=== PATIENT | female | born 1985 | race Caucasian/White ===

== ENCOUNTER 2020-01-01 15:16 | Emergency (ER) | payer OTHER, SELFPAY ==
--- NOTE | 2020-01-01 16:08 | EDPHYS ---
Physician Documentation [facility] Name: Yolanda Bernard Age: 34 yrs Sex: Female : 1985 Arrival Date: 01/01/2020 Time: 15:20 Bed 5 Private MD: IMNA Physician Obi Burnette HPI: 12/31 16:06 This 34 yrs old Female presents to ER via Ambulatory with complaints of Ear jr8 Pain. 16:06 The pt presents for ear pain and drainage since . The pt stated that she was jr8 walking and cleaning her L ear with a Q-tip, when her arm suddenly hit the wall. This forced the Q-tip deep in her ear, and she suddenly felt dizzy. She reports some loss of hearing with "pink drainage and pus" leaking out of her ear. States that the pain is currently a 5/10.. 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 - Social history:: Smoking status: Patient denies any tobacco usage or history of. ROS: 16:09 Eyes: Negative for injury, pain, redness, and discharge, Neck: Negative for injury, jr8 pain, and swelling, Cardiovascular: Negative for chest pain, palpitations, and edema, Respiratory: Negative for shortness of breath, cough, wheezing, and pleuritic chest pain, Abdomen/GI: Negative for abdominal pain, nausea, vomiting, diarrhea, and constipation, Back: Negative for injury and pain, MS/Extremity: Negative for injury and deformity, Skin: Negative for injury, rash, and discoloration, Neuro: Negative for headache, weakness, numbness, tingling, and seizure. 16:09 ENT: Positive for drainage from ear(s), ear pain. Exam: 16:09 Constitutional: This is a well developed, well nourished patient who is awake, alert, jr8 and in no acute distress. Eyes: Pupils equal round and reactive to light, extra-ocular motions intact. Lids and lashes normal. Conjunctiva and sclera are non-icteric and not injected. Cornea within normal limits. Periorbital areas with no swelling, redness, or edema. Neck: Trachea midline, no thyromegaly or masses palpated, and no cervical lymphadenopathy. Supple, full range of motion without nuchal rigidity, or vertebral point tenderness. No Meningismus. Cardiovascular: Regular rate and rhythm with a normal S1 and S2. No gallops, murmurs, or rubs. Normal PMI, no JVD. No pulse deficits. Respiratory: Lungs have equal breath sounds bilaterally, clear to auscultation and percussion. No rales, rhonchi or wheezes noted. No increased work of breathing, no retractions or nasal flaring. Skin: Warm, dry with normal turgor. Normal color with no rashes, no lesions, and no evidence of cellulitis. MS/ Extremity: Pulses equal, no cyanosis. Neurovascular intact. Full, normal range of motion. Neuro: Awake and alert, GCS 15, oriented to person, place, time, and situation. Cranial nerves II-XII grossly intact. Motor strength 5/5 in all extremities. Sensory grossly intact. Cerebellar exam normal. Normal gait. 16:09 ENT: External ear(s): are unremarkable, Ear canal(s): bloody discharge, that is minimal, in the left canal, TM's: erythema, that is mild, on the left, rupture, on the left, with bloody discharge, Nose: is normal, Mouth: is normal, Posterior pharynx: is normal, Dental exam: normal. Vital Signs: 15:26 BP 136 / 87; Pulse 73; Resp 17; Temp 97.8; Pulse Ox 100% ; Pain 5/10; jl7 MDM: 15:52 Patient medically screened. jr8 16:09 Data reviewed: vital signs, nurses notes, and as a result, I will discharge patient. jr8 Data interpreted: Pulse oximetry: on room air is 100 %. Interpretation: normal. Counseling: I had a detailed discussion with the patient and/or guardian regarding: the historical points, exam findings, and any diagnostic results supporting the discharge/admit diagnosis, the need for outpatient follow up, an ENT specialist, to return to the emergency department if symptoms worsen or persist or if there are any questions or concerns that arise at home. Administered Medications: No medications were administered Disposition: 01/01 13:52 Co-signature as Attending Physician, Obi Burnette MD I agree with the assessment and saundra plan of care. Disposition: 01/01/20 16:08 Discharged to Home. Impression: Other marginal perforations of tympanic membrane, left ear. - Condition is Stable. - Discharge Instructions: Eardrum Rupture, Adult. - Prescriptions for Amoxicillin 875 mg Oral Tablet - take 1 tablet by ORAL route every 12 hours for 10 days; 20 tablet. Ibuprofen 800 mg Oral Tablet - take 1 tablet by ORAL route every 12 hours As needed take with food; 20 tablet. - Medication Reconciliation Form, Thank You Letter, Antibiotic Education, Prescription Opioid Use form. - Follow up: Chloe Huston MD; When: 2 - 3 days; Reason: Recheck today's complaints, Continuance of care, Re-evaluation by your physician. - Problem is new. - Symptoms have improved. Signatures: Obi Burnette MD MD cha Williams, Irene, RN RN Delvin Cobb PA PA jr8 Olga Santos RN RN jl7 Corrections: (The following items were deleted from the chart) 12/31 16:19 16:08 01/01/2020 16:08 Discharged to Home. Impression: Other marginal perforations of iw tympanic membrane, left ear. Condition is Stable. Forms are Medication Reconciliation Form, Thank You Letter, Antibiotic Education, Prescription Opioid Use. Follow up: Chloe Huston; When: 2 - 3 days; Reason: Recheck today's complaints, Continuance of care, Re-evaluation by your physician. Problem is new. Symptoms have improved. jr8
--- NOTE | 2020-01-01 16:08 | ER ---
Nurse's Notes [facility] Name: Yolanda Bernard Age: 34 yrs Sex: Female : 1985 Arrival Date: 01/01/2020 Time: 15:20 Bed 5 Private MD: Diagnosis: Other marginal perforations of tympanic membrane, left ear Presentation: 12/31 15:26 Chief complaint: Patient states: Busted my eardrum on Wednesday from walking while jl7 cleaning my ear and tripped and shoved the q-tip in there. Reports left ear pain. Coronavirus screen: Client denies travel out of the [place] in the last 14 days. At this time, the client does not indicate any symptoms associated with coronavirus-19. Ebola Screen: No symptoms or risks identified at this time. Initial Sepsis Screen: Does the patient meet any 2 criteria? No. Patient's initial sepsis screen is negative. Does the patient have a suspected source of infection? No. Patient's initial sepsis screen is negative. Risk Assessment: Do you want to hurt yourself or someone else? Patient reports no desire to harm self or others. Onset of symptoms was December 30, 2019. Care prior to arrival: None. 15:26 Method Of Arrival: Ambulatory [facility] 15:26 Acuity: SELINA 4 jl7 Triage Assessment: 15:29 General: Appears in no apparent distress. uncomfortable, Behavior is calm, cooperative, jl7 appropriate for age. Pain: Complains of pain in left ear Pain currently is 5 out of 10 on a pain scale. EENT: Reports pain in left ear. 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 - Social history:: Smoking status: Patient denies any tobacco usage or history of. Screenin:18 Abuse screen: Denies threats or abuse. Denies injuries from another. Nutritional iw screening: No deficits noted. Tuberculosis screening: No symptoms or risk factors identified. Fall Risk None identified. Assessment: 15:50 General: Appears in no apparent distress. comfortable, Behavior is calm, cooperative. iw Pain: Complains of pain in left ear. Neuro: Level of Consciousness is awake, alert, obeys commands, Oriented to person, place, time, situation, Moves all extremities. Full function. Cardiovascular: Patient's skin is warm and dry. Respiratory: Respiratory effort is even, unlabored, Respiratory pattern is regular, symmetrical. EENT: Reports pain in left ear. Derm: Skin is intact, is healthy with good turgor. Musculoskeletal: Range of motion: intact in all extremities. Vital Signs: 15:26 BP 136 / 87; Pulse 73; Resp 17; Temp 97.8; Pulse Ox 100% ; Pain 5/10; jl7 ED Course: 15:20 Patient arrived in ED. ag5 15:28 Triage completed. jl7 15:29 Arm band placed on right wrist. jl7 15:50 Patient has correct armband on for positive identification. iw 15:52 Dlevin Barney PA is PHCP. jr8 15:52 Obi Burnette MD is Attending Physician. jr8 16:07 Latasha Zelaya, RN is Primary Nurse. iw 16:07 Chloe Huston MD is Referral Physician. jr8 16:18 No provider procedures requiring assistance completed. Patient did not have IV access iw during this emergency room visit. Administered Medications: No medications were administered Outcome: 16:08 Discharge ordered by . jr8 16:18 Discharged to home ambulatory. iw 16:18 Condition: good 16:18 Discharge instructions given to patient, Instructed on discharge instructions, follow up and referral plans. Demonstrated understanding of instructions, follow-up care, medications, Prescriptions given X 2. 16:19 Patient left the ED. iw Signatures: Latasha Zelaya, RN RN iw Delvin Barney PA PA jr8 Olga Santos RN RN jl7 Susan Hanks ag5
[2020-01-01 16:56] VITALS: BP 136/87; TEMP 97.8; O2SAT 100
== END 2020-01-01 16:19 | disposition home or self-care (01) ==
LOC: ER 15:16
DX: H72.2X2 Other marginal perforations of tympanic membrane, left ear (principal)
CPT/HCPCS: 99282

== ENCOUNTER 2021-11-15 17:47 | Emergency (ER) | payer SELFPAY ==
[2021-11-15] MEDS ORDERED: KETOROLAC 30 MG/ML INJ ONE (18:34)
--- NOTE | 2021-11-15 19:42 | ER ---
Nurse's Notes [facility] Name: Yolanda Steen Age: 36 yrs Sex: Female : 1985 Arrival Date: 11/15/2021 Time: 17:50 Bed 5 Private MD: Diagnosis: Orthopedic appliance disruption - screw;Other skin changes Presentation: 11/15 18:06 Chief complaint: Patient states: "I had surgery on my ankle when I was 18, this week hb one of the screws started poking out and it hurts." Denies recent injury. Reports left ankle pain 11/12. Coronavirus screen: At this time, the client does not indicate any symptoms associated with coronavirus-19. Ebola Screen: No symptoms or risks identified at this time. Initial Sepsis Screen: Does the patient meet any 2 criteria? No. Patient's initial sepsis screen is negative. Does the patient have a suspected source of infection? No. Patient's initial sepsis screen is negative. Risk Assessment: Do you want to hurt yourself or someone else? Patient reports no desire to harm self or others. Onset of symptoms was November 15, 2021. 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 - Social history:: Smoking status: Patient denies any tobacco usage or history of. Screenin:30 Abuse screen: Denies threats or abuse. Denies injuries from another. Nutritional jh6 screening: No deficits noted. Tuberculosis screening: No symptoms or risk factors identified. Fall Risk Gait- Impaired (20 pts.). Assessment: 18:29 General: Appears in no apparent distress. comfortable, Behavior is calm, cooperative. jh6 Pain: Complains of pain in left lateral ankle, left Achilles, left medial ankle and anterior aspect of left ankle Pain currently is 8 out of 10 on a pain scale. Quality of pain is described as aching, throbbing, Pain began 2-3 days ago. Is continuous, Aggravated by exercise, increased activity, weight bearing, Noted to be resistant to movement. Musculoskeletal: Range of motion: limited in left ankle Swelling present in left lateral ankle, left Achilles, left medial ankle and anterior aspect of left ankle Reports pain in left lateral ankle, left Achilles, left medial ankle and anterior aspect of left ankle. 19:13 Reassessment: Patient ambulating to the bathroom. vc1 Vital Signs: 18:06 BP 154 / 98; Pulse 83; Resp 16; Temp 98.1; Pulse Ox 100% on R/A; Weight 131.54 kg; hb Height 5 ft. 5 in. (165.10 cm); Pain 8/10; 19:25 BP 120 / 87; Pulse 86; Resp 16; Pulse Ox 98% on R/A; vc1 18:06 Body Mass Index 48.26 (131.54 kg, 165.10 cm) hb ED Course: 17:50 Patient arrived in ED. mr 17:52 De[facility] Can[facility]C [facility] snw 17:52 Obi Bunrette MD is Attending Physician. snw 18:08 Triage completed. hb 18:08 Arm band placed on. hb 18:24 Concha Humphrey, RN is Primary Nurse. 6 18:30 Bed in low position. Call light in reach. Side rails up X 1. Adult w/ patient. jh6 18:31 No provider procedures requiring assistance completed. 6 19:16 Primary Nurse role handed off by Concha Humphrey, LOYD vc1 19:16 Sabrina Frias, LOYD is Primary Nurse. vc1 19:38 Ankle Left 3 View XRAY In Process Unspecified. EDMS 19:40 Maurice Duncan MD is Referral Physician. snw 19:57 Patient did not have IV access during this emergency room visit. kd3 Administered Medications: 18:28 Drug: Ketorolac 30 mg Route: IM; Site: right deltoid; 6 18:54 Follow up: Response: No adverse reaction 6 Medication: 18:31 VIS not applicable for this client. 6 Outcome: 19:41 Discharge ordered by . snw 19:57 Discharged to home ambulatory, with family. kd3 19:57 Condition: stable 19:57 Discharge instructions given to patient, family, Instructed on discharge instructions, follow up and referral plans. Demonstrated understanding of instructions, follow-up care, medications, Prescriptions given X 3. 19:57 Patient left the ED. kd3 Signatures: Dispatcher [employer] EDHI Debbie Cano FNP-C HARNESS P[employer]ER-Csnw Sanjuana GordilloLeonie, RN RN hb Janet Silverman, RN RN kd3 Concha Humphrey, RN RN jh6 Sabrina Frias, RN RN vc1
--- NOTE | 2021-11-15 19:42 | EDPHYS ---
Physician Documentation [facility] Name: Yolanda Steen Age: 36 yrs Sex: Female : 1985 Arrival Date: 11/15/2021 Time: 17:50 Bed 5 Private MD: ED Physician Obi Burnette HPI: 11/15 19:16 This 36 yrs old Female presents to ER via Ambulatory with complaints of Ankle pain. snw 19:16 Onset: The symptoms/episode began/occurred acutely. Associated signs and symptoms: snw Pertinent positives: tenderness. The patient has not experienced similar symptoms in the past. The patient has not recently seen a physician. 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 - Social history:: Smoking status: Patient denies any tobacco usage or history of. ROS: 19:16 Constitutional: Negative for fever, chills, and weight loss, Eyes: Negative for injury, snw pain, redness, and discharge, ENT: Negative for injury, pain, and discharge, Neck: Negative for injury, pain, and swelling, Cardiovascular: Negative for chest pain, palpitations, and edema, Respiratory: Negative for shortness of breath, cough, wheezing, and pleuritic chest pain, Abdomen/GI: Negative for abdominal pain, nausea, vomiting, diarrhea, and constipation, Back: Negative for injury and pain, : Negative for injury, bleeding, discharge, and swelling, Skin: Negative for injury, rash, and discoloration, Neuro: Negative for headache, weakness, numbness, tingling, and seizure, Psych: Negative for depression, anxiety, suicide ideation, homicidal ideation, and hallucinations. 19:16 MS/extremity: Positive for decreased range of motion, tenderness, of the left medial ankle. Exam: 19:13 Constitutional: This is a well developed, well nourished patient who is awake, alert, snw and in no acute distress. Head/Face: Normocephalic, atraumatic. Eyes: Pupils equal round and reactive to light, extra-ocular motions intact. Lids and lashes normal. Conjunctiva and sclera are non-icteric and not injected. Cornea within normal limits. Periorbital areas with no swelling, redness, or edema. ENT: Nares patent. No nasal discharge, no septal abnormalities noted. Tympanic membranes are normal and external auditory canals are clear. Oropharynx with no redness, swelling, or masses, exudates, or evidence of obstruction, uvula midline. Mucous membranes moist. Neck: Trachea midline, no thyromegaly or masses palpated, and no cervical lymphadenopathy. Supple, full range of motion without nuchal rigidity, or vertebral point tenderness. No Meningismus. Chest/axilla: Normal chest wall appearance and motion. Nontender with no deformity. No lesions are appreciated. Cardiovascular: Regular rate and rhythm with a normal S1 and S2. No gallops, murmurs, or rubs. Normal PMI, no JVD. No pulse deficits. Respiratory: Lungs have equal breath sounds bilaterally, clear to auscultation and percussion. No rales, rhonchi or wheezes noted. No increased work of breathing, no retractions or nasal flaring. Abdomen/GI: Soft, non-tender, with normal bowel sounds. No distension or tympany. No guarding or rebound. No evidence of tenderness throughout. Back: No spinal tenderness. No costovertebral tenderness. Full range of motion. Skin: Warm, dry with normal turgor. Normal color with no rashes, no lesions, and no evidence of cellulitis. Neuro: Awake and alert, GCS 15, oriented to person, place, time, and situation. Cranial nerves II-XII grossly intact. Motor strength 5/5 in all extremities. Sensory grossly intact. Cerebellar exam normal. Normal gait. Psych: Awake, alert, with orientation to person, place and time. Behavior, mood, and affect are within normal limits. 19:13 Musculoskeletal/extremity: Extremities: grossly normal except: noted in the left medial ankle: decreased ROM, tenderness, pt had a plate and 7 screws placed in 2017. + remote scar. Mid scar with mild erythema. Pt states she feels screw at the skin . Vital Signs: 18:06 BP 154 / 98; Pulse 83; Resp 16; Temp 98.1; Pulse Ox 100% on R/A; Weight 131.54 kg; hb Height 5 ft. 5 in. (165.10 cm); Pain 8/10; 19:25 BP 120 / 87; Pulse 86; Resp 16; Pulse Ox 98% on R/A; vc1 18:06 Body Mass Index 48.26 (131.54 kg, 165.10 cm) hb MDM: 18:18 Patient medically screened. saundra 19:42 Data reviewed: vital signs, nurses notes. Counseling: I had a detailed discussion with snw the patient and/or guardian regarding: the historical points, exam findings, and any diagnostic results supporting the discharge/admit diagnosis, radiology results, the need for outpatient follow up, to return to the emergency department if symptoms worsen or persist or if there are any questions or concerns that arise at home. Response to treatment: the patient's symptoms have markedly improved after treatment. Special discussion: I discussed in detail with the patient the higher chance of wound infection based on his presenting history. Based on the history and exam findings, there is no indication for further emergent testing or inpatient evaluation. I discussed with the patient/guardian the need to see the orthopedic surgeon for further evaluation of the symptoms. I discussed with the patient/guardian the need to see the primary care provider for further evaluation of the symptoms. 11/15 18:11 Order name: Ankle Left 3 View XRAY; Complete Time: 19:47 snw Administered Medications: 18:28 Drug: Ketorolac 30 mg Route: IM; Site: right deltoid; [facility] 18:54 Follow up: Response: No adverse reaction [facility] Disposition Summary: 11/15/21 19:41 Discharge Ordered Location: Home snw Condition: Stable snw Diagnosis - Orthopedic appliance disruption - screw snw - Other skin changes snw Followup: snw - With: Emergency Department - When: As needed - Reason: Worsening of condition Followup: snw - With: Maurice Duncan MD - When: 2 - 3 days - Reason: Recheck today's complaints, Continuance of care Discharge Instructions: - Discharge Summary Sheet snw - Cellulitis, Adult snw - Orthopedic Hardware Removal snw - Orthopedic Hardware Removal, Care After snw Forms: - Medication Reconciliation Form snw - Thank You Letter snw - Antibiotic Education snw - Prescription Opioid Use snw Prescriptions: - Diclofenac Sodium 75 mg Oral Tablet Sustained Release - take 1 tablet by ORAL route 2 times per day; 30 tablet; Refills: 0, Product snw Selection Permitted - mupirocin 2 % Topical ointment - apply 1 application by TOPICAL route 3 times per day; 50 gram; Refills: 0, snw Product Selection Permitted - orphenadrine citrate 100 mg Oral Tablet Sustained Release - take 1 tablet by ORAL route 2 times per day As needed; 20 tablet; Refills: 0, snw Product Selection Permitted Signatures: Dispatcher [employer] Obi Mishra, Debbie Arrington MD, cha, SUPERVISOR [employer]-C [employer]nw Leonie Enriquez RN RN hb oCncha Humphrey RN RN jh6
--- NOTE | 2021-11-15 19:45 | RAD REPORT ---
EXAM DESCRIPTION: RAD - Ankle Left 3 View -11/15/2021 7:36 pm CLINICAL HISTORY: Left ankle pain FINDINGS: Sideplate and screws affix old distal fibular/tibial fractures. No acute fracture or dislocation is seen.
[2021-11-15 20:41] VITALS: TEMP 98.1
[2021-11-15 20:43] VITALS: BP 120/87; O2SAT 98
== END 2021-11-15 19:57 | disposition home or self-care (01) ==
LOC: ER 17:47
DX: T84.119A Breakdown (mechanical) of internal fixation device of unspecified bone of limb, initial encounter (principal); R23.9 Unspecified skin changes; Z88.5 Allergy status to narcotic agent
CPT/HCPCS: 96372; 99283

== ENCOUNTER 2021-12-03 09:18 | Day surgery (SDC) | payer OTHER, SELFPAY ==
[2021-12-02 11:41] LABS: Absolute Lymphocytes (CBC) 2.9 K/uL (0.7-4.9); Hematocrit 42.4 % (36.0-45.0); Lymphocytes % 32.7 % (15.3-44.8); MCV 86.4 fL (80-100); MPV 9.8 fL (7.6-11.3)
[2021-12-02 11:49] LABS: SARS-CoV-2 Antigen Rapid Res Negative (Negative)
[2021-12-03] MEDS ORDERED: CEFAZOLIN SODIUM 1 GM/VIAL ONE (09:39)
[2021-12-03] MEDS ORDERED: NA CHLORIDE 0.9% 50 ML ONE (09:39)
[2021-12-03] MEDS ORDERED: Ringers Lactate 1,000 ML IV ONE (09:39)
[2021-12-03] MEDS ORDERED: BUPIVACAINE 0.5% PF 10 ML VIAL ONE (10:48)
[2021-12-03] MEDS ORDERED: propofoL 200 MG/20 ML VIAL IV ONE (11:25)
[2021-12-03] MEDS ORDERED: FENTANYL CITR 100 MCG/2 ML ONE (11:25)
[2021-12-03] MEDS ORDERED: dexAMETHasone 10 MG/ML VIAL ONE (11:25)
[2021-12-03] MEDS ORDERED: LIDOCAINE 2% MPF 5 ML VIAL ONE (11:26)
[2021-12-03] MEDS ORDERED: MIDAZOLAM HCL 2 MG/2 ML INJ ONE (11:26)
[2021-12-03] MEDS ORDERED: KETOROLAC 30 MG/ML INJ ONE (11:26)
[2021-12-03] MEDS ORDERED: ONDANSETRON 4 MG/2 ML VIAL ONE (11:27)
[2021-12-03] MEDS ORDERED: BUPIVACAINE 0.5% PF 10 ML VIAL SQ ONE (12:17)
[2021-12-03] MEDS: HYDROMORPHONE HCL 1 MG/ML INJ ONE ×2 (12:44→12:49)
[2021-12-03 13:01] VITALS: O2SAT 100
--- NOTE | 2021-12-03 13:11 | RAD REPORT ---
EXAM DESCRIPTION: RAD - Ankle Left 2 View - 12/03/2021 1:05 pm CLINICAL HISTORY: Left ankle surgery FINDINGS: Three fluoroscopic intraoperative films obtained for screw removal . Surgery performed by Dr. Ybarra. Fluoroscopy time 0.1 minute
[2021-12-03 13:26] VITALS: BP 100/53; TEMP 96.6
--- NOTE | 2021-12-03 13:28 | OP ---
Date of Procedure: 12/03/2021 Surgeon: Ishan Ybarra MD Preoperative Diagnosis: Left ankle pain with retained medial screw and perceived pain from this impl ant. Postoperative Diagnosis: Left ankle pain with retained medial screw and perceived pain from this imp lant. Procedure: Left ankle removal of retained medial screw. Estimated Blood Loss: Less than 10 cc. Complications: There were no complications. Indication For Operation: Ms. Steen is a patient whom I have not seen in the past, who came to see me in my office with complaints of pain along the medial aspect of her ankle. She did have some swe lling as well as pain with palpation along the medial scar, which had been used to place a medial scr ew for an ankle fracture, which occurred 18 years ago at an outside facility. X-rays demonstrated th at this did not appear to be that prominent, however, patient did have significant amount of arthriti c changes. She did not have any pain on the lateral aspect. Patient requested the screw be removed and I think this is definitely reasonable, but she was told that with her ankle being as arthritic as it is that this may not completely alleviate her pain. She says she understands that as presented a nd as well as the other risks associated with the procedure and agreed to proceed. Description Of Procedure: Patient was taken to the operating room and placed in supine position. Ge neral anesthesia was obtained by staff. Following this, her left lower extremity was then prepped an d draped in usual sterile fashion for this procedure. Her previous anterior curvilinear scar was the n identified and the C-arm was brought in to localize with hemostats the reasonable location of the s crew head. After this, the previous incision was then explored, taken down carefully through some sc ar. There was some debulking of the scar in this area. This did allow for better visualization and the C-arm was used to completely localize the screw, which was then seen. It was covered by a little bone, which was removed using a rongeur, but the screw head was then easily identified and a 3.5 scr ewdriver was then used to remove the screw in total. An x-ray was taken at the end of the procedure, which demonstrated no retained medial screw. The wound was gently irrigated and closed using nylon sutures. Patient was placed in a well-padded sterile dressing, awakened, taken to recovery room in g ood condition. There were no complications. /FILIBERTO Voice ID: [id number] Report ID: [id number]
[2021-12-03] MEDS ORDERED: HYDROCODONE/APAP 10/325 TAB ONE (13:42)
== END 2021-12-03 13:50 | disposition home or self-care (01) ==
LOC: OR 09:18
PROVIDERS: ATTEND Orthopaedic Surgery
PROC: 0SCG0ZZ Extirpation of Matter from Left Ankle Joint, Open Approach (ICD-10-PCS; principal; 2021-12-03 11:30)
DX: M25.572 Pain in left ankle and joints of left foot (principal); Z18.89 Other specified retained foreign body fragments; Z20.822 Contact with and (suspected) exposure to COVID-19
CPT/HCPCS: 85025; 80048; 36415; 81025; 73600; 87811; 27610; J2704; J2250; J3010; J1100; J1170; J7120; J2405; J0690; J2001

== ENCOUNTER 2024-11-16 10:23 | Day surgery (SDC) | payer OTHER ==
[2024-11-13 15:50] LABS: Anion Gap 8.9 mEq/L (5.0-15.0); BUN Blood Urea Nitrogen 10.0 mg/dL (7-18); Glucose Level 118.0 mg/dL (74-106); Potassium 3.9 mEq/L (3.5-5.1)
[2024-11-16] MEDS ORDERED: LIDOCAINE 1% MPF 5 ML VIAL ONE (10:33)
[2024-11-16] MEDS ORDERED: MIDAZOLAM HCL 2 MG/2 ML INJ ONE (10:33)
[2024-11-16] MEDS ORDERED: FENTANYL CITR 100 MCG/2 ML ONE (10:33)
[2024-11-16] MEDS ORDERED: ONDANSETRON 4 MG/2 ML VIAL ONE (10:33)
[2024-11-16] MEDS ORDERED: Ringers Lactate 0 ML IV ONE (10:46)
[2024-11-16] MEDS ORDERED: NA CHLORIDE 0.9% 1,000 ML ONE (10:51)
[2024-11-16 11:57] LABS: Urine Specific Gravity/Preg 1.020 (1.005-1.030)
[2024-11-16] MEDS: LIDOCAINE HCL/EPINEPHRINE 20 ML MDV ONE (12:38)
[2024-11-16] MEDS ORDERED: KETOROLAC 30 MG/ML INJ ONE (12:42)
[2024-11-16 13:21] VITALS: O2SAT 98
[2024-11-16] MEDS ORDERED: IBUPROFEN 200 MG TAB PO PRN (13:27)
--- NOTE | 2024-11-16 13:30 | P.BOP ---
Preoperative diagnosis: AUB-P, endometrial polyps Postoperative diagnosis: same Primary procedure: operative hysteroscopy polypectomy and d/c Estimated blood loss: min Specimen: polyp and EMC Findings: 2 polyps Anesthesia: General Complications: None Fluids & blood products: deficit 1035, but lots of leakage outside the drainage bag Transferred to: Recovery Room Condition: Good
[2024-11-16 15:07] VITALS: BP 108/68; TEMP 98
[2024-11-16] MEDS ORDERED: METFORMIN HCL 500 MG TAB PO SCH (17:00)
--- NOTE | 2024-11-16 23:31 | OP ---
Date of Procedure: 11/16/2024 Surgeon: Jen Lira MD Preoperative Diagnoses: AUB-P, endometrial polyps. Postoperative Diagnoses: AUB-P, endometrial polyps. Procedures Performed: Operative hysteroscopy with MyoSure and polypectomy, dilatation and curettage. Estimated Blood Loss: Minimal. Anesthesia: General with LMA. Specimens: Endometrial polyps and curettings. Complications: No complications. Drains: No drains. Condition: Stable. Findings: Two endometrial polyps were noted in the posterior portion of the endometrial canal. Flui d deficit was 1035; however, there were lots of leakage outside the drainage bag and not able to be c aptured. Normal saline was used for distention. Indications: The patient is a 39-year-old with abnormal uterine bleeding. Endometrial thickening wa s noted on ultrasound. Then, office hysteroscopy showed 2 polyps, so we consented her for a hot poly pectomy and endometrial curettage here in the hospital for complete removal of the polyps as well as for safety of the procedure given the patient's high BMI as well as feasibility of the procedure due to the limitation in the mobility or range of motion in her hips. Description Of Procedure: After informed consent was re-verified in the preoperative area, she was t aken back to the OR, placed in supine fashion on the operating table. General anesthesia was given. She was placed in dorsal lithotomy position using Mason stirrups carefully. The right hip decreased range of motion taken into consideration and not more than 10 degrees of external rotation was used on the right. Mason stirrups were used and carefully to slight hyperflexion and keeping the leg toge ther, procedure was done. Vulva, vagina, and perineum were prepped and draped in a sterile fashion with Betadine. Speculum was placed to expose the cervix. Anterior lip was grasped with the single-tooth tenaculum. Cervix was dilated to 16-Persian. Operative hysteroscope was introduced after priming the MyoSure system. Then, the polyps were visualized. The MyoSure light cutting device was inserted through the drainage port after removing the drainage channel. Then, the polyps were removed. It was difficult to visualize the topmost part of the polyp as there was not adequate cavity distention without leakage from the ex ternal os. Therefore, as best as I could see, most of the polyp on the top was also removed. The lo wer polyp was completely removed. So, once the procedure was complete, I took out the hysteroscope a nd then a #3 endometrial curette was used to curette the endometrial lining. There was good curettag e with the palpable sensation of being on the myometrium, which is most likely a sign that the entire polyp has been removed. All specimens were handed out for permanent pathology. All instruments were removed. Instrument, ne edle, and sponge counts were correct at the end of the case. The patient tolerated the procedure wel l. She was carefully repositioned in a supine fashion on the operating table, recovered from anesthe patsy, and taken to PACU in stable condition. She will follow up in 1 week for pathology results. The future plan would be to offer an IUD for this patient for endometrial suppression and repeat ultr asound in 6 months and possibly a diagnostic hysteroscopy for better evaluation at that time and at 1 2 months. If there is atypia or malignancy, she will be referred to a solar systems designer/oncologist. LORI/FILIBERTO Voice ID: [id number] Report ID: [id number]
[2024-11-17] MEDS ORDERED: LEVOTHYROXINE SOD 0.125 MG TAB PO SCH (06:00)
== END 2024-11-16 14:19 | disposition home or self-care (01) ==
LOC: OR 10:23
PROVIDERS: ATTEND Obstetrics & Gynecology
PROC: 0U5B8ZZ Destruction of Endometrium, Via Natural or Artificial Opening Endoscopic (ICD-10-PCS; principal; 2024-11-16 12:30)
DX: N85.02 Endometrial intraepithelial neoplasia [EIN] (principal)
CPT/HCPCS: 58558; 93005; 80048; 36415; 81025; 82947 ×2; 88305; J2704; J2003; J2250; J3010; J2405; J7030; J7120